=== PATIENT | male | born 1955 | race Caucasian/White ===

== ENCOUNTER 2020-09-18 08:34 | Outpatient (NON) | payer OTHER, SELFPAY ==
[2020-09-18 23:55] LABS: SARS-CoV-2 RNA PCR Positive
== END 2020-09-18 08:35 ==
LOC: ANHCOVIDDT 08:35
PROVIDERS: PCP Family Medicine; Visit Provider Family Medicine
DX: U07.1 COVID-19 (principal)
CPT/HCPCS: 87635; C9803; U0003

== ENCOUNTER 2021-07-03 13:37 | Outpatient (CLI) | payer OTHER, MEDICARE, SELFPAY ==
--- NOTE | ~2021-07-03 | XR_ITS ---
EXAMINATION: XR chest 2V DATE: 07/03/2021 14:18 INDICATION: Other specified symptoms and signs. TECHNIQUE: Frontal and lateral views of the chest were obtained on 3 radiographs. COMPARISON: None. FINDINGS: There is mild atelectasis in left lower lung zone. No pleural effusion or pneumothorax. The heart is normal. The nasogastric tube tip is in the stomach. IMPRESSION: 1. Mild atelectasis in left lower lung zone. Reviewed, dictated and finalized at location A.
== END 2021-07-03 13:38 | disposition home or self-care (01) ==
PROVIDERS: PCP Family Medicine; Visit Provider Family Medicine
DX: R09.89 Other specified symptoms and signs involving the circulatory and respiratory systems (principal); J98.11 Atelectasis
CPT/HCPCS: 71046